=== PATIENT | male | born 1940 | race Caucasian/White ===

== ENCOUNTER 2018-02-25 12:55 | Observation (INO) | payer MEDICARE, OTHER ==
[2018-02-25] MEDS ORDERED: Nitroglycerin 2% Ointment 1 INCH/1 GM Packet ONE (13:22)
[2018-02-25] MEDS ORDERED: ISOVUE-370 76%-LOCM 1 ML ONE (13:35)
[2018-02-25 13:44] LABS: #Eosinphils 0.1 thou/uL (0.0-0.7); #Lymphocytes 1.1 thou/uL (1.20-3.40); #Monocytes 0.5 thou/uL (0.11-0.59); #Neutrophils 2.7 thou/uL (1.40-6.50); %Basophils 0.6 % (0.0-1.0); %Eosinophils 1.2 % (0.0-10.0); %Lymphocytes 24.4 % (21.0-51.0); %Monocytes 11.6 % (0.0-10.0); %Neutrophils 62.1 % (42.0-75.0); Hemoglobin 14.2 g/dL (14.0-18.0); Mean Corpuscular HGB CONC 33.4 g/dL (32.0-36.0); Mean Corpuscular Hemoglobin 29.2 pg (27.0-31.0); Mean Corpuscular Volume 87.6 fL (78.0-98.0); Mean Platelet Volume 6.1 fL (7.4-10.4); Platelet Count 198 thou/uL (130-400); Red Blood Cell (RBC) Count 4.87 mill/uL (4.70-6.10); White Blood Cell (WBC) Count 4.4 thou/uL (4.8-10.8)
[2018-02-25 14:07] LABS: ALT (SGPT) 15 U/L (8-55); AST (SGOT) 14 U/L (5-34); Albumin 4.3 g/dL (3.4-4.8); Alkaline Phosphatase 61 U/L (40-150); Anion Gap 9 mmol/L (10-20); BUN (Urea Nitrogen) 10 mg/dL (8.4-25.7); Bilirubin, Total 0.6 mg/dL (0.2-1.2); CK (CPK) 49 U/L (30-200); Calc. Creatinine Clearance 0 mL/min (70-130); Calcium 9.9 mg/dL (7.8-10.44); Carbon Dioxide 27 mmol/L (23-31); Chloride 104 mmol/L (98-107); Estimated GFR-MDRD 88; Globulin 2.3 g/dL (2.4-3.5); Glucose 100 mg/dL (83-110); Lipase 23 U/L (8-78); Potassium 4.1 mmol/L (3.5-5.1); Protein, Total 6.6 g/dL (5.8-8.1); Sodium 136 mmol/L (136-145)
[2018-02-25 14:11] LABS: CKMB 1.9 ng/mL (0-6.6); Troponin I Less than 0.010 ng/mL (< 0.028)
--- NOTE | 2018-02-25 14:26 | RAD ---
PORTABLE CHEST: Date: 02/25/18 HISTORY: Chest pain. COMPARISON: None. FINDINGS: Lungs show chronic parenchymal change. No focal infiltrate or vascular congestion. Heart size upper n ormal. Aortic calcification. Postop changes are apparent with radiopaque suture in the right perihila r region and right medial apex. Apical pleural thickening. IMPRESSION: There are chronic changes as described with no evidence of acute infiltrate or congestion. POS: [facility]
--- NOTE | 2018-02-25 16:03 | CT ---
CT ANGIO CHEST WITH CONTRAST: Date: 02/25/18 Multiple axial tomograms obtained through chest following pulmonary angio protocol with multiplanar r econstruction and 3D postprocessing. INDICATION: Chest pain. Assess for pulmonary embolus. FINDINGS: The pulmonary arteries show adequate opacification. There is no evidence of pulmonary embolus. Review of the lung deal show no evidence of inflammatory infiltrate or effusion. There are scattere d chronic lung changes. The mediastinum is unremarkable. Upper abdomen unremarkable. IMPRESSION: 1. No evidence of pulmonary embolus. 2. There are chronic lung parenchymal changes. No evidence of acute infiltrate. POS: [facility]
[2018-02-25 17:09] LABS: Cardiac Risk 3.8 (Less than 4.5)
[2018-02-25 17:13] LABS: Troponin I 0.024 ng/mL (< 0.028)
[2018-02-25 17:52] VITALS: BMI 27.8
[2018-02-25] MEDS ORDERED: Acetaminophen 325 MG TAB PO PRN (17:54)
[2018-02-25 19:54] LABS: Troponin I 0.013 ng/mL (< 0.028)
[2018-02-26] MEDS ORDERED: Acetaminophen 325 MG TAB PO PRN (00:58)
[2018-02-26] MEDS ORDERED: HYDROcodone/Acetaminophen 5/325 mg Tablet PO PRN ×2 (00:58)
[2018-02-26] MEDS ORDERED: Nitroglycerin 0.4 MG TAB (25 Tab Bottle) SL SCH (00:58)
[2018-02-26] MEDS ORDERED: Enoxaparin Sodium 30 MG/0.3 ML SYRINGE SC SCH (01:00)
[2018-02-26 01:52] LABS: CKMB 1.3 ng/mL (0-6.6)
[2018-02-26 04:42] LABS: #Eosinphils 0.1 thou/uL (0.0-0.7); #Lymphocytes 1.2 thou/uL (1.20-3.40); #Monocytes 0.6 thou/uL (0.11-0.59); %Basophils 0.2 % (0.0-1.0); %Lymphocytes 25.3 % (21.0-51.0); %Monocytes 11.9 % (0.0-10.0); %Neutrophils 60.5 % (42.0-75.0); Hemoglobin 13.1 g/dL (14.0-18.0); Mean Corpuscular HGB CONC 32.9 g/dL (32.0-36.0); Mean Corpuscular Hemoglobin 29.1 pg (27.0-31.0); Mean Corpuscular Volume 88.6 fL (78.0-98.0); Mean Platelet Volume 6.2 fL (7.4-10.4); Platelet Count 175 thou/uL (130-400); RBC Distribution Width 12.1 % (11.5-14.5); Red Blood Cell (RBC) Count 4.51 mill/uL (4.70-6.10); White Blood Cell (WBC) Count 4.9 thou/uL (4.8-10.8)
[2018-02-26 04:53] LABS: Anion Gap 9 mmol/L (10-20); BUN (Urea Nitrogen) 11 mg/dL (8.4-25.7); Calc. Creatinine Clearance 85 mL/min (70-130); Calcium 9.3 mg/dL (7.8-10.44); Carbon Dioxide 28 mmol/L (23-31); Chloride 105 mmol/L (98-107); Estimated GFR-MDRD 87; Glucose 100 mg/dL (83-110); Magnesium 2.2 mg/dL (1.6-2.6); Potassium 4.6 mmol/L (3.5-5.1); Sodium 137 mmol/L (136-145)
--- NOTE | 2018-02-26 05:52 | HP ---
DATE OF ADMISSION: 02/25/2018 at 2345 PRIMARY CARE PHYSICIAN: . PRIMARY NURSE PLASTICS: Dr. Swain CHIEF COMPLAINT: Chest pressure. HISTORY OF PRESENT ILLNESS: Mr. Albarado is a 77-year-old male with a history of coronary artery di sease, hypertension, and acid reflux who presents to the emergency department with an episode of ches t pressure. Patient developed some chest tightness earlier today. He did have some shortness of hailey ath and generalized weakness worsening over the last few days. He said the pressure was worse with e xertion and relieved by rest. No syncope or presyncope, no fevers or chills, no abdominal pain, naus ea, vomiting, diarrhea, constipation. Last episode of heart problems with some 10 years ago, we unde rwent PTCA x2 as well as Dr. Swain then. He has not had any workup since then. No other current complaints. PAST MEDICAL HISTORY: Coronary artery disease, hypertension, GERD. PAST SURGICAL HISTORY: PTCA x2, ten years ago. HOME MEDICATIONS: 1. Nitroglycerin 0.4 mg sublingual p.r.n. 2. Lisinopril 10 mg p.o. b.i.d. 3. Dexlansoprazole 60 mg p.o. daily. 4. Vitamin B12 of 5000 mcg daily. 5. Vitamin D3 of 5000 units daily. 6. Atorvastatin 40 mg p.o. at bedtime. 7. Aspirin 81 mg daily. ALLERGIES: NKDA. FAMILY HISTORY: Negative for clotting or bleeding disorder. No immune dysfunction. SOCIAL HISTORY: Negative habits x3. REVIEW OF SYSTEMS: All systems reviewed and negative except as stated as per HPI. PHYSICAL EXAMINATION: VITAL SIGNS: Temperature 97.4, pulse 80, blood pressure 141/68, respiratory rate 18, satting 92% on room air. GENERAL: He is awake, he is alert. He is oriented x3. Well-developed, well-nourished, elderly whit e male, appears to be in no acute distress. HEENT: Normocephalic, atraumatic. Pupils equal, round, react to light bilaterally. Mucous membrane s are moist. No visible lesions or thrush. NECK: Supple. There is no lymphadenopathy, JVD, or thyromegaly. Normal carotid upstrokes. I do no t appreciate bruits. LUNGS: Clear to auscultation bilaterally. He has no wheezes, no rales, no rhonchi. Good air moveme nt and excellent chest excursion symmetrically. CARDIOVASCULAR: Normal cardiac and regular. Normal S1, S2. No S3 or S4. No audible murmurs. ABDOMEN: Soft. It is nontender, nondistended. No masses, no organomegaly. No rebound, rigidity, o r guarding. EXTREMITIES: No cyanosis or clubbing. He does have 1+ edema in the right lower extremity below-the- knee and 2+ edema in the left lower extremity [id number]. I cannot palpate dorsalis pedis, poste rior tibial pulses bilaterally. SKIN: Otherwise warm, moist, and well perfused. There is no other rashes or lesions. MUSCULOSKELETAL: Normal to inspection. There is no evidence of inflammation or palpable effusions. NEUROLOGIC: Cranial nerves II-XII were grossly intact without any focal neurologic deficits, 5/5 str ength, and normal speech. LABORATORY DATA: Sodium 136, potassium 4.1, chloride 104, bicarb 27, BUN 10, creatinine 0.84, glucos e of 100, calcium 9.9. Liver function within normal limits. CBC showed white count of 4.4, hemoglob in is 14.2, hematocrit 42.7, platelet count is 198,000. Biomarkers showed CK-MB of 1.9. Initial tro ponin I is less than 0.010, repeat is 0.024 and third of 0.013. Fasting lipid profile was normal and lipase was 23. RADIOGRAPHIC STUDIES: CT angiogram was negative for PE. It did show some chronic interstitial pradhan es. Chest x-ray showed no acute cardiopulmonary disease. ASSESSMENT AND PLAN: 1. Chest pain, acute coronary syndrome. Patient does have a history of coronary artery disease. He did slightly increase his troponins, but did normalize. We will get another set here, we will place him on nitro paste, beta-iliana, and aspirin. We will get a nuclear stress test in the morning and ask Dr. Swain to evaluate. 2. Hypertension: Controlled. Patient will be on nitro-paste, we will continue his home medications , adding metoprolol for rate control. 3. History of coronary artery disease as above. 4. Gastroesophageal reflux disease on dexlansoprazole, which will continue.
[2018-02-26] MEDS ORDERED: Nitroglycerin 2% Ointment 1 INCH/1 GM Packet TOP SCH (06:00)
[2018-02-26] MEDS ORDERED: Lisinopril 10 MG TAB PO SCH (09:00)
[2018-02-26] MEDS ORDERED: Non-Formulary Item 1 EACH (Dexlansoprazole [Dexilant] 60 MG) PO SCH (09:00)
[2018-02-26] MEDS ORDERED: Metoprolol Tartrate 25 MG TAB PO SCH (09:00)
[2018-02-26] MEDS ORDERED: Aspirin 325 MG TAB PO SCH (09:00)
[2018-02-26 11:43] VITALS: TEMP 97.5
--- NOTE | 2018-02-26 12:04 | NM ---
CARDIAC SPECT: HISTORY: A 77-year-old male with chest pain, coronary artery disease, and hypertension. TECHNIQUE: A myocardial perfusion scan was performed using a single-isotope 1-day protocol with Technetium 99m s estamibi. Ten mCi were injected intravenously for the rest exam followed by 28 mCi for the stress st udy. Pharmacologic stress with adenosine was monitored and interpreted by Augustine Johnson Nurse Practition er. FINDINGS: Homogeneous tracer distribution is seen in the myocardial segments on stress and rest images without fixed or reversible defects. GATED SPECT LVEF: 61%. WALL MOTION EXAM: Normal. IMPRESSION: Normal myocardial perfusion scan. POS: [facility]
[2018-02-26 13:02] LABS: CKMB 1.5 ng/mL (0-6.6); Troponin I Less than 0.010 ng/mL (< 0.028)
[2018-02-26 13:05] VITALS: BP 163/61
[2018-02-26] MEDS ORDERED: ADENOSINE 60 MG/20 ML VIAL ONE (13:59)
--- NOTE | 2018-02-26 19:13 | DIS ---
DATE OF ADMISSION: 02/25/2018 DATE OF DISCHARGE: 02/26/2018 DISCHARGE DIAGNOSES: 1. Chest pain, likely musculoskeletal, stable. 2. Hypertension, stable. 3. History of coronary artery disease, chronic and stable. 4. Dyslipidemia. CONSULTATIONS: None. PERTINENT LAB AND X-RAY FINDINGS: Complete metabolic profile within normal limits. Troponin I negat taylor x4. BNP 46. Total cholesterol 172, triglycerides 87, HDL 45, LDL 110. CBC within normal limits . Portable chest x-ray dated 02/25/2018 showed chronic changes without evidence of acute process. C T angiogram of the chest dated 02/25/2018 showed no evidence for pulmonary embolus. Chronic changes bilaterally. Cardiolite stress test dated 02/26/2018 showed no evidence of reversible or fixed ische jayant with calculated ejection fraction of 61%. HOSPITAL COURSE: The patient was observed on the telemetry unit after initially presenting with ches t pain in the context of known coronary artery disease. The patient underwent Cardiolite stress test ing after initial cardiac biomarkers were negative x4. The patient underwent Cardiolite stress testi ng showing no evidence of reversible or fixed ischemia with calculated ejection fraction of 61%. Tel emetry monitoring showed no evidence of acute arrhythmia or dysrhythmia, and patient overall remained clinically stable throughout the hospital course. Screening metabolic survey was unremarkable and p atient's symptoms consistent with musculoskeletal origin chest pain. I have examined the patient at the time of discharge and discussed laboratory findings, stress test results, at which patient verbal izes understanding and agreement. The patient is overall clinically stable and ready for discharge o n 02/26/2018. DISCHARGE MEDICATIONS: 1. Enteric coated aspirin 81 mg 1 tab p.o. daily. 2. Lipitor 40 mg p.o. at bedtime. 3. Vitamin D3 of 5000 units p.o. daily. 4. Vitamin B12 of 5000 mcg p.o. daily. 5. Dexilant 60 mg p.o. daily. 6. Lisinopril 10 mg p.o. b.i.d. 7. Nitroglycerin 0.4 mg sublingually every 5 minutes p.r.n. chest pain. FOLLOWUP: Patient to follow up with his primary care provider, Dr. Adrian Fuentes within 7 days o f discharge. The patient will follow up with Dr. Heavenly Swain with [facility] with regularly scheduled appointment in 03/2018. ACTIVITY: Ad maria eugenia. DIET: Heart healthy. CODE STATUS: FULL. DISPOSITION: Home, 02/26/2018.
[2018-02-26] MEDS ORDERED: Atorvastatin Calcium 40 MG TAB PO SCH (21:00)
--- NOTE | 2018-03-03 11:46 | EKG ---
Test Reason : Blood Pressure : / mmHG Vent. Rate : 086 BPM Atrial Rate : 086 BPM P-R Int : 226 ms QRS Dur : 134 ms QT Int : 398 ms P-R-T Axes : 052 -34 034 degrees QTc Int : 476 ms Sinus rhythm with marked sinus arrhythmia with 1st degree A-V block Left axis deviation Left ventricular hypertrophy with QRS widening Cannot rule out Septal infarct , age undetermined Abnormal ECG Confirmed by FLAVIO SHAFFER, CM ([id number]), senior editor PAN CODY ([id number]) on 03/03/2018 11:46:10 AM Referred By: Confirmed By:CM MUNIZ MD
== END 2018-02-26 13:32 | disposition home or self-care (01) ==
LOC: ERS 12:55 → 2SW 17:27
PROVIDERS: ADMIT Family Medicine; ATTEND Family Medicine
DX: R07.9 Chest pain, unspecified (principal); I10 Essential (primary) hypertension; I25.10 Atherosclerotic heart disease of native coronary artery without angina pectoris; E78.5 Hyperlipidemia, unspecified; K21.9 Gastro-esophageal reflux disease without esophagitis; Z79.52 Long term (current) use of systemic steroids; Z79.899 Other long term (current) drug therapy; Z79.82 Long term (current) use of aspirin
CPT/HCPCS: 71045; 71275; 78452; 80048; 80053; 80061; 82550; 82553 ×3; 83690; 83735; 83880; 84484 ×4; 85025 ×2; 85379; 93005; 93017; 96372; 99285; A9500; G0378; 36415; 96360; J0153; J1650

== ENCOUNTER 2018-08-27 15:45 | Observation (INO) | payer MEDICARE ==
[2018-08-27 16:19] LABS: #Lymphocytes 1.2 thou/uL (1.20-3.40); #Monocytes 0.5 thou/uL (0.11-0.59); #Neutrophils 2.9 thou/uL (1.40-6.50); %Basophils 0.4 % (0.0-1.0); %Eosinophils 0.7 % (0.0-10.0); %Lymphocytes 25.8 % (21.0-51.0); %Monocytes 10.4 % (0.0-10.0); %Neutrophils 62.6 % (42.0-75.0); Mean Corpuscular HGB CONC 33.1 g/dL (32.0-36.0); Mean Corpuscular Hemoglobin 29.3 pg (27.0-31.0); Mean Corpuscular Volume 88.4 fL (78.0-98.0); Mean Platelet Volume 6.5 fL (7.4-10.4); Platelet Count 217 thou/uL (130-400); RBC Distribution Width 11.8 % (11.5-14.5); Red Blood Cell (RBC) Count 4.78 mill/uL (4.70-6.10); White Blood Cell (WBC) Count 4.6 thou/uL (4.8-10.8)
[2018-08-27 16:46] LABS: ALT (SGPT) 18 U/L (8-55); AST (SGOT) 17 U/L (5-34); Albumin 4.2 g/dL (3.4-4.8); Alkaline Phosphatase 59 U/L (40-150); Anion Gap 14 mmol/L (10-20); BUN (Urea Nitrogen) 14 mg/dL (8.4-25.7); Bilirubin, Total 0.4 mg/dL (0.2-1.2); CK (CPK) 64 U/L (30-200); Calc. Creatinine Clearance 0 mL/min (70-130); Carbon Dioxide 26 mmol/L (23-31); Chloride 105 mmol/L (98-107); Estimated GFR-MDRD 79; Globulin 2.7 g/dL (2.4-3.5); Glucose 90 mg/dL (83-110); Potassium 4.5 mmol/L (3.5-5.1); Protein, Total 6.9 g/dL (5.8-8.1); Sodium 140 mmol/L (136-145)
--- NOTE | 2018-08-27 16:55 | RAD ---
CHEST ONE VIEW: HISTORY: Dyspnea. Chest pain. COMPARISON: 02/25/2018 FINDINGS: The cardiac silhouette and pulmonary vasculature are unremarkable. The lungs are hyperinflated. The mediastinum is midline with aortic calcification. No lobar consolidation or evidence of pneumothora x. quality assurance monitor chassis leads overly the chest. IMPRESSION: Chronic type findings are stable. No active cardiopulmonary abnormalities are demonstrated. POS: [facility]
[2018-08-27 17:32] LABS: Troponin I 0.016 ng/mL (< 0.028)
[2018-08-27] MEDS ORDERED: Nitroglycerin 0.4 MG TAB (25 Tab Bottle) SL PRN (20:12)
[2018-08-27] MEDS ORDERED: Nitroglycerin 0.4 MG TAB (25 Tab Bottle) SL SCH (20:45)
[2018-08-27] MEDS ORDERED: Atorvastatin Calcium 40 MG TAB PO SCH (21:00)
[2018-08-27] MEDS ORDERED: Lisinopril 10 MG TAB PO SCH (21:00)
[2018-08-27] MEDS: Atorvastatin Calcium 40 MG TAB PO SCH (21:48)
--- NOTE | 2018-08-28 02:47 | HP ---
CHIEF COMPLAINT: Chest pain. HISTORY OF PRESENT ILLNESS: This patient is an 78-year-old male, who presented via the emergency department with complaint of chest pain. The patient was admitted in February of this year with an episode of chest pain, which he states is somewhat similar to this one. At that time, the patient underwent a nuclear medicine stress test, which was unremarkable and he was discharged to home. He reports he had followup with Dr. Swain, who told him he was doing quite well and did not get a followup with him for a year. The patient reports that he started feeling bad this morning. He had some general discomfort over his chest and abdominal area. He took his blood pressure and that was high in the 170s. He took his usual morning medications and the pain persisted. It radiated into his neck, his left axilla, and his left arm. He reports that he has actually had some intermittent left upper extremity pain for several weeks. He believes this may be related to carrying boxes of avandeo decorations for his . Today, his encouraged him to come to the emergency department because his symptoms were persisting. He had mild shortness of breath previously, but that resolved. He had no nausea, although he reports he had a little bit last evening, but that resolved with some Maalox. Reports that he is feeling somewhat better at the time of my exam. REVIEW OF SYSTEMS: All other systems were reviewed. Pertinent positives and negatives noted in the history of present illness. PAST MEDICAL HISTORY: Notable for coronary artery disease, hypertension, GERD. PAST SURGICAL HISTORY: Prior PTCA x2, 10 years ago, and the above-mentioned. FAMILY HISTORY: Negative for clotting, bleeding, or any dysfunction. No significant cancer history. SOCIAL HISTORY: The patient is a nonsmoker, nondrinker, and nondrug user. He is . He is full code and his would be his surrogate decision maker should that be necessary. ALLERGIES: NONE. MEDICATIONS: 1. Nitroglycerin sublingual p.r.n. 2. Lisinopril 10 mg p.o. b.i.d. 3. Protonix 40 mg daily. 4. Atorvastatin 40 mg daily. 5. Aspirin 81 mg daily. PHYSICAL EXAMINATION: VITAL SIGNS: Temperature 97.8, pulse 97, respirations 20, O2 saturation 100% on room air, BP 163/61. GENERAL APPEARANCE: Age-appropriate male. He is in no distress. He is awake, alert, oriented, pleasant, and cooperative. HEENT: PERRL. No OP lesions. NECK: Supple and symmetric. No lymphadenopathy, JVD, or carotid bruits. HEART: Regular rate and rhythm with no murmurs, gallops, or rubs. LUNGS: Clear to auscultation bilaterally with good chest wall expansion and air exchange. ABDOMEN: Soft, nontender, and nondistended. Positive bowel sounds. No masses. No organomegaly. EXTREMITIES: Warm and dry with no cyanosis, clubbing, or edema. LABORATORY DATA: White count 4.6, hemoglobin 14.0, platelets 217. Sodium 140, potassium 4.5, chloride 105, CO2 is 26, BUN 14, creatinine 0.89, glucose 90, AST 17, ALT 18, troponin 0.016, subsequent 0.024. Chest x-ray is clear. EKG shows some first-degree block. Chest x-ray shows chronic changes with no acute cardiopulmonary abnormalities noted. IMPRESSION AND PLAN: 1. Chest pain. The patient has a history of known coronary artery disease, but had a negative stress test in February. His initial EKG shows no ischemic changes and his troponins are negative. We will continue to monitor the troponins and telemetry and observation status. I do not anticipate another stress test. We will ask Cardiology to see the patient but at this point, I believe he can either be managed medically or will need more aggressive workup. 2. History of reflux. Continue with the Protonix. Certainly, the patient's symptoms may be related to more GI related pain. 3. Hypertension. Continue with the patient's usual home medications for hypertension. Job ID: [id number]
[2018-08-28 05:04] VITALS: BMI 27.4
[2018-08-28] MEDS ORDERED: Aspirin 81 mg Enteric Coated Tablet PO SCH (09:00)
[2018-08-28] MEDS: Lisinopril 10 MG TAB PO SCH (09:14)
[2018-08-28] MEDS ORDERED: Ondansetron PF 4 MG/2 ML Vial IVP PRN (10:20)
[2018-08-28] MEDS ORDERED: Ondansetron ODT 4 MG TAB PO PRN (10:20)
--- NOTE | 2018-08-28 10:24 | PDOC.PN ---
- Subjective Encounter Start Date: 08/28/18 Encounter Start Time: 10:23 Subjective: Patient sat up comfortably. No complaints. Feels well. No CP/SOB. -: No headaches or dizziness. No difficulty mobilizing. Denies any abdo pain. -: No n/v. No complaints or issues overnight. Urinating without difficulty. - Objective Resuscitation Status - Order Detail: 08/27/18 20:06 Resuscitation Status Routine Resuscitation Status: FULL: Full Resuscitation Discussed with: Patient Vital Signs & Weight: Vital Signs (12 hours) Temp Pulse Resp BP BP Pulse Ox 08/28/18 09:14 163/71 H 08/28/18 07:52 97.3 F L 68 16 163/71 H 100 08/28/18 04:21 97.6 F 73 18 166/74 H 100 08/27/18 23:02 63 16 134/63 Weight Weight 186 lb I&O: 08/27/18 08/28/18 08/29/18 06:59 06:59 06:59 Intake Total 360 Output Total 700 Balance -340 Result Diagrams: 08/27/18 16:10 08/27/18 16:10 Phys Exam - Physical Examination Constitutional: NAD HEENT: PERRLA, moist MMs, sclera anicteric, oral pharynx no lesions Neck: no nodes, no JVD, supple, full ROM Respiratory: clear to auscultation bilateral Cardiovascular: RRR, no significant murmur Gastrointestinal: soft, non-tender, positive bowel sounds Musculoskeletal: no edema, pulses present Neurological: normal sensation, moves all 4 limbs Psychiatric: normal affect, A&O x 3 Skin: no rash, normal turgor, cap refill <2 seconds Dx/Plan (1) Chest pain Code(s): R07.9 - CHEST PAIN, UNSPECIFIED Status: Resolved (2) CAD (coronary artery disease) Code(s): I25.10 - ATHSCL HEART DISEASE OF [place] CORONARY ARTERY W/O ANG PCTRS Status: Chronic (3) Hyperlipidemia Code(s): E78.5 - HYPERLIPIDEMIA, UNSPECIFIED Status: Chronic (4) Hypertension Code(s): I10 - ESSENTIAL (PRIMARY) HYPERTENSION Status: Chronic (5) GERD (gastroesophageal reflux disease) Code(s): K21.9 - GASTRO-ESOPHAGEAL REFLUX DISEASE WITHOUT ESOPHAGITIS Status: Chronic - Plan cont current plan of care TNI neg x 3. Awaiting Cardiology review. -: BP raised 163/71 prior to dose of Lisinopril. Repeat BP. -: GI prophylaxis with Pepcid 20 mg IV BID. -: Continue NPO pending cardio review. ADDENDUM: Patient with episode of central chest pain that lasted seconds around 10:30 am. Non-radiating. Repeat BP 174.74. Amlodipine 5 mg PO x 1 requested. Repeat BP after 30 min. Patient asymptomatic at present.
[2018-08-28] MEDS: Sodium Chloride 0.9% 1,000 ML IV SCH (12:12)
[2018-08-28] MEDS ORDERED: Communication Order-Pharmacy FS SCH (13:30)
--- NOTE | 2018-08-28 13:44 | CON ---
DATE OF CONSULTATION: 08/28/2018 REASON FOR CONSULTATION: Chest pain. PRIMARY PROPELLER MECHANIC: Dr. Sahil Swain. HISTORY OF PRESENT ILLNESS: Mr. Albarado is a very pleasant 78-year-old white gentleman, who comes to the hospital for chest pain. He was carrying some heavy boxes about 2 weeks ago and started having left shoulder pain since then, and he has been nursing this left shoulder pain for days. Yesterday, he had an episode where he was walking back from his mailbox and he became very short winded with midsternal chest tightness that only got better after he stopped to rest. This pain was not related to his shoulder pain and he got very concerned this might be his heart, so he decided to come in. He has been ruled out with 3 negative enzymes. He had a similar presentation back in February. He came in and had chest pain. He had a stress test that was unremarkable and he was discharged home. He does have a history of coronary artery disease, however, this is mild. He had a heart catheterization [place] [address] Burnette, which showed normal coronaries and a repeat catheterization in 2010, which showed mild coronary artery disease. He has not had any other evaluation since then except for the stress that he had recently. Currently, he is chest pain free. PAST MEDICAL HISTORY: 1. Mild coronary artery disease as above. 2. Hypertension. 3. GERD. PAST SURGICAL HISTORY: There is a reported history of prior coronary intervention. However, this is not what I see on his records. SOCIAL HISTORY: No alcohol, tobacco, or drugs. OUTPATIENT MEDICATIONS: 1. Sublingual nitroglycerin p.r.n. 2. Lisinopril 10 mg b.i.d. 3. Protonix 40 mg. 4. Atorvastatin 40 mg. 5. Aspirin 81 a day. ALLERGIES: NO KNOWN DRUG ALLERGIES. FAMILY HISTORY: No early coronary artery disease. PHYSICAL EXAMINATION: VITAL SIGNS: Temperature 97.2, pulse 64, respiratory rate 16, saturating 100% on room air, blood pressure 170/79. GENERAL: Awake, alert, and oriented x3. No distress. HEENT: Normocephalic, atraumatic. NECK: Supple. LUNGS: Clear. CARDIOVASCULAR: S1, S2. No S3 or S4. There is a grade 3/6 systolic murmur in the right upper sternal border. ABDOMEN: Soft. EXTREMITIES: No edema. SKIN: Warm and dry. LABORATORY DATA: Laboratory work was reviewed. CBC was unremarkable. Chemistry was normal. Troponin was normal x3. GFR of 79. Chest x-ray was reviewed. ASSESSMENT AND PLAN: 1. Chest pain: Atypical, however, he is having ongoing chest pain. He is very nervous, this may be coronary artery disease. We will get an echocardiogram today and we will plan on doing the heart catheterization tomorrow. We spoke about just conservative therapy and family would prefer to be on the more aggressive side and repeat a heart catheterization to make sure that this is not his heart, if it is not this will make him less likely to come to the hospital if the chest pain were to come back. 2. Continue other medications for now. Thank you for letting me to participate in the care of your patient. Job ID: [id number]
[2018-08-28] MEDS: Atorvastatin Calcium 40 MG TAB PO SCH (19:44)
[2018-08-28] MEDS ORDERED: Famotidine/PF 20 mg/2ml Vial SLOW IVP SCH (21:00)
[2018-08-29] MEDS: Sodium Chloride 0.9% 1,000 ML IV SCH ×2 (00:45→13:10)
[2018-08-29 05:14] LABS: #Eosinphils 0.1 thou/uL (0.0-0.7); #Lymphocytes 1.3 thou/uL (1.20-3.40); #Monocytes 0.6 thou/uL (0.11-0.59); #Neutrophils 2.5 thou/uL (1.40-6.50); %Basophils 0.1 % (0.0-1.0); %Eosinophils 1.5 % (0.0-10.0); %Lymphocytes 29.5 % (21.0-51.0); %Monocytes 13.1 % (0.0-10.0); %Neutrophils 55.8 % (42.0-75.0); Hemoglobin 14.3 g/dL (14.0-18.0); Mean Corpuscular HGB CONC 33.4 g/dL (32.0-36.0); Mean Corpuscular Hemoglobin 29.7 pg (27.0-31.0); Mean Corpuscular Volume 88.8 fL (78.0-98.0); Mean Platelet Volume 6.4 fL (7.4-10.4); Platelet Count 187 thou/uL (130-400); RBC Distribution Width 11.9 % (11.5-14.5); Red Blood Cell (RBC) Count 4.82 mill/uL (4.70-6.10); White Blood Cell (WBC) Count 4.4 thou/uL (4.8-10.8)
[2018-08-29] MEDS: Lisinopril 10 MG TAB PO SCH (05:20)
[2018-08-29 05:32] LABS: ALT (SGPT) 17 U/L (8-55); AST (SGOT) 15 U/L (5-34); Albumin 3.8 g/dL (3.4-4.8); Alkaline Phosphatase 57 U/L (40-150); Anion Gap 11 mmol/L (10-20); BUN (Urea Nitrogen) 11 mg/dL (8.4-25.7); Bilirubin, Total 0.8 mg/dL (0.2-1.2); Calc. Creatinine Clearance 73 mL/min (70-130); Calcium 9.2 mg/dL (7.8-10.44); Carbon Dioxide 27 mmol/L (23-31); Chloride 106 mmol/L (98-107); Estimated GFR-MDRD 81; Globulin 2.4 g/dL (2.4-3.5); Glucose 102 mg/dL (83-110); Potassium 4.5 mmol/L (3.5-5.1); Protein, Total 6.2 g/dL (5.8-8.1); Sodium 139 mmol/L (136-145)
[2018-08-29] MEDS ORDERED: Midazolam HCl 2 mg/2 ml Vial ONE (08:15)
[2018-08-29] MEDS ORDERED: Enoxaparin Sodium 40 MG/0.4 ML SYRINGE SC SCH (09:00)
[2018-08-29] MEDS ORDERED: Famotidine 20 MG TAB PO SCH (09:00)
[2018-08-29] MEDS ORDERED: Sodium Chloride 0.9% 200 ML IV PRN (09:11)
[2018-08-29] MEDS ORDERED: Acetaminophen/Codeine 30-300mg Tablet PO PRN ×2 (09:11)
[2018-08-29] MEDS ORDERED: traMADol HCl 50 MG TAB PO PRN (09:11)
[2018-08-29] MEDS ORDERED: Nitroglycerin 0.4 MG TAB (25 Tab Bottle) SL PRN (09:11)
[2018-08-29] MEDS ORDERED: Iopamidol 370 76% 100 ML VIAL ONE (09:18)
[2018-08-29] MEDS ORDERED: Amlodipine 5 MG TAB PO ONE (11:03)
[2018-08-29 12:11] VITALS: BP 178/78; TEMP 97.5
--- NOTE | 2018-08-30 03:39 | DIS ---
DATE OF ADMISSION: 08/27/2018 DATE OF DISCHARGE: 08/29/2018 PRIMARY CARE PHYSICIAN: Allison Fuentes. CONSULTANTS: 1. Dr. Kwon. 2. Dr. Billingsley. CODE STATUS: Full. PROCEDURES: The patient had a chest x-ray, which showed chronic type findings are stable. No active cardiopulmonary abnormalities. The patient had an echocardiogram that showed an ejection fraction visually estimated at 55% to 60%. Grade 1/3 diastolic dysfunction, septal bounce consistent with BBB morphology. Mitral annular calcification. Mild mitral regurgitation. Aortic valve sclerosis, but opens well. 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 The patient also had a cardiac catheterization which showed good ventricular function. Estimated LV ejection fraction at 60% to 65%, disease of the left circumflex coronary artery, 50% to 70%, small tortuous vessel, mild calcium in the LAD, no stenosis. DISCHARGE DIAGNOSES: 1. Chest pain, atypical. 2. Coronary artery disease. 3. Hypertension. 4. History of reflux. HOSPITAL COURSE: This is a very pleasant 78-year-old male, who presented to the emergency room on August 27, 2018, for evaluation of chest pain. He reports that he woke up with left-sided chest pain, left arm pain, [place] [facility] [place] [facility] where he was admitted for chest pain. The patient had 3 troponins which were undetectable. Dr. Kwon was consulted. He discussed pain with the family and options, and they opted for a cardiac catheterization to make sure that he did not have any serious coronary artery disease causing the pain. The patient underwent cardiac cath the day of discharge, findings as described above. The patient underwent the recovery process after a cardiac cath, he tolerated well. After 4 hours, he was able to sit up. He was able to walk around the unit without any issues. Subsequently, the patient was discharged home. Instructed to follow up with his primary care physician within the next week. Follow up with Dr. Kwon in the next 2 to 3 weeks. REVIEW OF SYSTEMS: The patient was examined prior to discharge. He denied any chest pain, shortness of breath, palpitations, headache, abdominal pain, nausea, vomiting, or diarrhea. All other systems are reviewed and are negative unless mentioned in the hospital course. PHYSICAL EXAMINATION: VITAL SIGNS: Temperature is 98.1, pulse is 67, respirations are 18, blood pressure 143/65, and pulse ox is 96% on room air. CONSTITUTIONAL: The patient appears nontoxic. The patient is alert and oriented to person, place, and time. HEENT: Head is atraumatic and normocephalic. Eyes; eyelids are normal to inspection. Pupils are equally round and reactive to light. ENT: Mucous membranes are moist. Mouth exam is normal. NECK: Normal range of motion. Trachea is midline. RESPIRATORY: Chest, breath sounds are clear. No findings of respiratory distress. CARDIOVASCULAR: Regular heart rate and rhythm. Heart sounds are normal. ABDOMEN: Nontender on palpation. Bowel sounds are heard. BACK: Normal inspection. Normal range of motion. EXTREMITIES: Upper extremities, normal inspection, normal range of motion. Lower extremities, normal inspection, normal range of motion. Pedal pulses are equal bilaterally. NEURO: Speech is normal. The patient is oriented to person, place, and time. SKIN: Warm, dry, and normal in color. PSYCH: The patient has a normal affect. Remote memory is normal. HOME MEDICATIONS: The patient was continued on medications including; 1. Aspirin 81 mg p.o. daily. 2. Lipitor 40 mg p.o. at bedtime. 3. Nitrostat 0.4 mg sublingual q.5 minutes as needed for chest pain. 4. Protonix 40 mg p.o. daily. 5. Zestril 10 mg p.o. daily. ALLERGIES: NO KNOWN DRUG ALLERGIES. CONDITION: Stable. PATIENT CONDUCTION: Discharged to home. REFERRAL: The patient should follow up with primary care physician within one week and follow up with Dr. Kwon in the next 2 to 3 weeks. Job ID: [id number]
--- NOTE | 2018-09-07 15:24 | EKG ---
Test Reason : Blood Pressure : / mmHG Vent. Rate : 082 BPM Atrial Rate : 082 BPM P-R Int : 212 ms QRS Dur : 136 ms QT Int : 398 ms P-R-T Axes : 028 -33 037 degrees QTc Int : 464 ms Sinus rhythm with sinus arrhythmia with 1st degree A-V block Left axis deviation Left ventricular hypertrophy with QRS widening Abnormal ECG Confirmed by TYE VELASQUEZ ([id number]), editor farm journal OLGA LUA ([id number]) on 09/07/2018 3:23:26 PM Referred By: Confirmed By:TYE VELASQUEZ
== END 2018-08-29 13:56 | disposition home or self-care (01) ==
LOC: ERS 15:45 → 2SW 18:00
PROVIDERS: ADMIT Internal Medicine; ATTEND Internal Medicine
PROC: 4A023N7 Measurement of Cardiac Sampling and Pressure, Left Heart, Percutaneous Approach (ICD-10-PCS; principal; 2018-08-29)
PROC: B2101ZZ Fluoroscopy of Single Coronary Artery using Low Osmolar Contrast (ICD-10-PCS; 2018-08-29)
DX: R07.89 Other chest pain (principal); I25.10 Atherosclerotic heart disease of native coronary artery without angina pectoris; I10 Essential (primary) hypertension; I34.0 Nonrheumatic mitral (valve) insufficiency; I35.8 Other nonrheumatic aortic valve disorders; I35.1 Nonrheumatic aortic (valve) insufficiency; I36.1 Nonrheumatic tricuspid (valve) insufficiency; I37.1 Nonrheumatic pulmonary valve insufficiency; E78.5 Hyperlipidemia, unspecified; K21.9 Gastro-esophageal reflux disease without esophagitis; Z95.5 Presence of coronary angioplasty implant and graft; Z79.82 Long term (current) use of aspirin; Z79.899 Other long term (current) drug therapy
CPT/HCPCS: 71045; 80053 ×2; 82550; 84484 ×2; 85025 ×2; 93005; 93306; 93458; 96361 ×2; 96374; 99285; C1769; G0378 ×2; 36415; 99152; J1644; J2250; S0028

== ENCOUNTER 2018-09-12 15:45 | Emergency (ER) | payer MEDICARE ==
[2018-09-12 16:19] LABS: #Lymphocytes 1.9 thou/uL (1.20-3.40); #Monocytes 0.7 thou/uL (0.11-0.59); #Neutrophils 4.7 thou/uL (1.40-6.50); %Basophils 0.4 % (0.0-1.0); %Eosinophils 0.4 % (0.0-10.0); %Lymphocytes 26.2 % (21.0-51.0); %Monocytes 9.9 % (0.0-10.0); %Neutrophils 63.1 % (42.0-75.0); Hemoglobin 14.8 g/dL (14.0-18.0); Mean Corpuscular Hemoglobin 29.7 pg (27.0-31.0); Mean Corpuscular Volume 87.3 fL (78.0-98.0); Mean Platelet Volume 6.8 fL (7.4-10.4); Platelet Count 244 thou/uL (130-400); RBC Distribution Width 11.9 % (11.5-14.5); Red Blood Cell (RBC) Count 4.97 mill/uL (4.70-6.10); White Blood Cell (WBC) Count 7.4 thou/uL (4.8-10.8)
[2018-09-12 16:49] LABS: ALT (SGPT) 17 U/L (8-55); AST (SGOT) 16 U/L (5-34); Albumin 4.3 g/dL (3.4-4.8); Alkaline Phosphatase 71 U/L (40-150); Anion Gap 15 mmol/L (10-20); BUN (Urea Nitrogen) 10 mg/dL (8.4-25.7); Bilirubin, Total 0.7 mg/dL (0.2-1.2); Calc. Creatinine Clearance 0 mL/min (70-130); Calcium 10.2 mg/dL (7.8-10.44); Carbon Dioxide 22 mmol/L (23-31); Chloride 103 mmol/L (98-107); Estimated GFR-MDRD 72; Globulin 2.6 g/dL (2.4-3.5); Glucose 156 mg/dL (83-110); Potassium 4.1 mmol/L (3.5-5.1); Protein, Total 6.9 g/dL (5.8-8.1); Sodium 136 mmol/L (136-145)
[2018-09-12 17:08] LABS: Troponin I 0.036 ng/mL (< 0.028)
[2018-09-12] MEDS ORDERED: Pantoprazole 40 MG VIAL ONE (17:14)
[2018-09-12] MEDS ORDERED: Famotidine/PF 20 mg/2ml Vial ONE (17:16)
--- NOTE | 2018-09-12 19:13 | RAD ---
CHEST ONE VIEW: 09/12/18 HISTORY: Chest pain and dizziness. COMPARISON: 08/27/18. FINDINGS: The cardiac silhouette is magnified by projection. Lungs are hyperinflated. Parenchymal scarring and sutures at the right upper chest. Mediastinum is midline with aortic calcification. No lobar consolid ation or evidence of pneumothorax. The phototypesetting equipment monitor leads overlie the chest. IMPRESSION: Postoperative changes and other chronic type findings appears stable. POS: [facility]
[2018-09-12 19:15] LABS: CKMB 2.3 ng/mL (0-6.6)
[2018-09-12 20:10] LABS: Troponin I 0.022 ng/mL (< 0.028)
--- NOTE | 2018-09-15 10:50 | EKG ---
Test Reason : Blood Pressure : / mmHG Vent. Rate : 106 BPM Atrial Rate : 106 BPM P-R Int : 166 ms QRS Dur : 132 ms QT Int : 358 ms P-R-T Axes : 020 -04 075 degrees QTc Int : 475 ms Sinus tachycardia with Premature atrial complexes with Abberant conduction Non-specific intra-ventricular conduction block Cannot rule out Anteroseptal infarct , age undetermined Abnormal ECG Confirmed by MOI BUSTAMANTE DO ([id number]), slot editor PAN CODY ([id number]) on 09/15/2018 10:50:04 AM Referred By: Confirmed By:MOI BUSTAMANTE DO
== END 2018-09-12 20:24 | disposition home or self-care (01) ==
LOC: ERS 15:45
DX: R07.9 Chest pain, unspecified (principal); K21.9 Gastro-esophageal reflux disease without esophagitis; I10 Essential (primary) hypertension; Z79.899 Other long term (current) drug therapy; Z79.82 Long term (current) use of aspirin
CPT/HCPCS: 36415; 71045; 80053; 82553; 84484; 85025; 93005; 96374; C9113; S0028

== ENCOUNTER 2018-12-03 13:48 | Outpatient (CLI) | payer MEDICARE ==
[2018-12-03 14:34] LABS: #Basophils 0.1 thou/uL (0.0-0.2); #Lymphocytes 1.1 thou/uL (1.20-3.40); #Monocytes 0.5 thou/uL (0.11-0.59); #Neutrophils 3.3 thou/uL (1.40-6.50); %Basophils 1.3 % (0.0-1.0); %Eosinophils 0.8 % (0.0-10.0); %Lymphocytes 22.3 % (21.0-51.0); %Monocytes 10.4 % (0.0-10.0); %Neutrophils 65.2 % (42.0-75.0); Mean Corpuscular HGB CONC 32.2 g/dL (32.0-36.0); Mean Corpuscular Hemoglobin 28.9 pg (27.0-31.0); Mean Corpuscular Volume 89.7 fL (78.0-98.0); Mean Platelet Volume 6.5 fL (7.4-10.4); Platelet Count 196 thou/uL (130-400); RBC Distribution Width 11.9 % (11.5-14.5); Red Blood Cell (RBC) Count 4.49 mill/uL (4.70-6.10); White Blood Cell (WBC) Count 5.1 thou/uL (4.8-10.8)
[2018-12-03 14:50] LABS: Anion Gap 12 mmol/L (10-20); BUN (Urea Nitrogen) 10 mg/dL (8.4-25.7); Calc. Creatinine Clearance 0 mL/min (70-130); Calcium 9.7 mg/dL (7.8-10.44); Carbon Dioxide 27 mmol/L (23-31); Chloride 105 mmol/L (98-107); Estimated GFR-MDRD 75; Glucose 121 mg/dL (83-110); Potassium 4.4 mmol/L (3.5-5.1); Sodium 140 mmol/L (136-145)
== END 2018-12-03 13:49 | disposition home or self-care (01) ==
LOC: LABBT 13:48
PROVIDERS: ATTEND Surgery
DX: Z01.812 Encounter for preprocedural laboratory examination (principal); K40.90 Unilateral inguinal hernia, without obstruction or gangrene, not specified as recurrent
CPT/HCPCS: 80048; 85025

== ENCOUNTER 2018-12-05 09:55 | Day surgery (SDC) | payer MEDICARE ==
[2018-12-03 13:41] VITALS: BMI 26.9
[2018-12-05] MEDS ORDERED: Bupivacaine/Epinephrine 0.25% 30 ML VIAL ONE (11:43)
[2018-12-05] MEDS ORDERED: Bupivacaine PF 0.5% 30 ML VIAL ONE ×2 (11:43→12:29)
[2018-12-05] MEDS ORDERED: Bupivacaine 0.25% HCL 30 ML VIAL ONE (12:09)
[2018-12-05] MEDS ORDERED: Fentanyl 100 MCG/2 ML VIAL ONE ×2 (12:15→13:35)
[2018-12-05] MEDS ORDERED: HYDROcodone/Acetaminophen 5/325 mg Tablet ONE (14:48)
[2018-12-05] MEDS ORDERED: PROPOFOL 200 MG/20 ML VIAL ONE (15:06)
[2018-12-05] MEDS ORDERED: ePHEDrine 50 MG/ML VIAL ONE (15:06)
[2018-12-05] MEDS ORDERED: Lidocaine 1% PF 5 ML VIAL ONE (15:06)
--- NOTE | 2018-12-05 21:39 | OP ---
DATE OF PROCEDURE: 12/05/2018 PREOPERATIVE DIAGNOSIS: Right inguinal hernia. POSTOPERATIVE DIAGNOSIS: Right inguinal hernia. PROCEDURE PERFORMED: Right inguinal hernia repair with mesh, PHS extended. ANESTHESIA: General. COMPLICATIONS: None. SPECIMENS: None. FINDINGS: Right inguinal hernia. DESCRIPTION OF PROCEDURE: The patient was taken to the operating room and laid supine on the operating room table. After general anesthetic was obtained, an oblique incision made above the pubic tubercle in the right lower quadrant. Cautery was used to dissect down through Taty's to expose the external oblique fibers opened along the course of the external ring. The ilioinguinal nerve was found and segmentally high removed to prevent postop pain. Cord structures were mobilized on the pubic tubercle using a Fenwick drain. Dissection superiorly and medially on the cord showed to be an indirect hernia sac. The indirect hernia sac was dissected away from the surrounding structures and a high ligation was performed using silk. The sac was dunked back down into the abdominal cavity. PHS extended mesh brought into the sterile field. The underlay was placed in preperitoneal space through the internal ring. The overlay was laid in the floor of the inguinal canal. The overlay was sewn distally to the pubic tubercle medially to the transverse arch, laterally to the shelving edge of the inguinal ligament using permanent braided suture. Extra mesh was tucked back into the external oblique proximally. The wound was irrigated. Local anesthetic was applied. External oblique was closed using 3-0 Vicryl, Taty was closed using 3-0 Vicryl. Skin closed running 4-0 Monocryl and Dermabond. The patient was sent to recovery in stable condition. All instrument counts, needle counts and lap counts are correct. Job ID: [id number]
== END 2018-12-05 15:20 | disposition home or self-care (01) ==
LOC: SDC 09:55
PROVIDERS: ATTEND Surgery
PROC: 0YU50JZ Supplement Right Inguinal Region with Synthetic Substitute, Open Approach (ICD-10-PCS; principal; 2018-12-05)
DX: K40.90 Unilateral inguinal hernia, without obstruction or gangrene, not specified as recurrent (principal); I10 Essential (primary) hypertension; I25.10 Atherosclerotic heart disease of native coronary artery without angina pectoris; E78.00 Pure hypercholesterolemia, unspecified; K21.9 Gastro-esophageal reflux disease without esophagitis; Z79.82 Long term (current) use of aspirin; Z79.899 Other long term (current) drug therapy
CPT/HCPCS: 49505; A4306; C1781; J2001; J2704; J3010; J3490; S0020

== ENCOUNTER 2019-01-28 04:31 | Observation (INO) | payer MEDICARE ==
[2019-01-28 05:38] LABS: #Eosinphils 0.1 thou/uL (0.0-0.7); #Monocytes 0.5 thou/uL (0.11-0.59); #Neutrophils 2.6 thou/uL (1.40-6.50); %Basophils 0.6 % (0.0-1.0); %Eosinophils 1.9 % (0.0-10.0); %Lymphocytes 22.7 % (21.0-51.0); %Monocytes 12.5 % (0.0-10.0); %Neutrophils 62.4 % (42.0-75.0); ALT (SGPT) 12 U/L (8-55); AST (SGOT) 11 U/L (5-34); Alkaline Phosphatase 67 U/L (40-150); Anion Gap 9 mmol/L (10-20); BUN (Urea Nitrogen) 16 mg/dL (8.4-25.7); Bilirubin, Total 0.6 mg/dL (0.2-1.2); Calc. Creatinine Clearance 0 mL/min (70-130); Calcium 9.7 mg/dL (7.8-10.44); Carbon Dioxide 29 mmol/L (23-31); Chloride 104 mmol/L (98-107); Estimated GFR-MDRD 87; Globulin 1.9 g/dL (2.4-3.5); Glucose 103 mg/dL (83-110); Hemoglobin 12.5 g/dL (14.0-18.0); Mean Corpuscular HGB CONC 32.4 g/dL (32.0-36.0); Mean Corpuscular Hemoglobin 28.7 pg (27.0-31.0); Mean Corpuscular Volume 88.6 fL (78.0-98.0); Mean Platelet Volume 6.4 fL (7.4-10.4); Platelet Count 201 thou/uL (130-400); Potassium 4.5 mmol/L (3.5-5.1); Protein, Total 5.9 g/dL (5.8-8.1); RBC Distribution Width 12.2 % (11.5-14.5); Red Blood Cell (RBC) Count 4.35 mill/uL (4.70-6.10); Sodium 137 mmol/L (136-145); White Blood Cell (WBC) Count 4.2 thou/uL (4.8-10.8)
[2019-01-28 08:25] LABS: Troponin I Less than 0.010 ng/mL (< 0.028)
[2019-01-28 08:26] VITALS: BMI 25.4
[2019-01-28] MEDS ORDERED: Ondansetron PF 4 MG/2 ML Vial IVP PRN (08:58)
[2019-01-28] MEDS ORDERED: Acetaminophen 325 MG TAB PO PRN (08:58)
[2019-01-28] MEDS ORDERED: Ondansetron ODT 4 MG TAB SL PRN (08:58)
--- NOTE | 2019-01-28 08:59 | RAD ---
CHEST 1 VIEW: INDICATION: Chest pain. COMPARISON: Prior exam of 09/12/2018. FINDINGS: Severe COPD change and partial right lung apex pneumonectomy is stable. Heart size is upper limits o f normal. No acute osseous abnormality is evident. IMPRESSION: Stable chronic obstructive pulmonary disease change. No definite acute cardiopulmonary abnormality. POS: BH
[2019-01-28] MEDS ORDERED: cloNIDine 0.1 MG TAB PO PRN (12:04)
[2019-01-28] MEDS ORDERED: Nitroglycerin 0.4 MG TAB (25 Tab Bottle) SL PRN (12:04)
[2019-01-28 12:32] VITALS: BP 135/65; TEMP 98
[2019-01-28] MEDS ORDERED: Clopidogrel Bisulfate 300 MG TAB PO SCH (12:45)
[2019-01-28] MEDS ORDERED: Atorvastatin Calcium 40 MG TAB PO SCH (21:00)
[2019-01-28] MEDS ORDERED: Famotidine 20 MG TAB PO SCH (21:00)
[2019-01-28] MEDS ORDERED: Non-Formulary Item 1 EACH (Ranitidine Hcl [Ranitidine Hcl] 150 MG) PO SCH (21:00)
[2019-01-29] MEDS ORDERED: Aspirin 81 mg Enteric Coated Tablet PO SCH (09:00)
[2019-01-29] MEDS ORDERED: Lisinopril 10 MG TAB PO SCH (09:00)
--- NOTE | 2019-01-29 13:08 | SS ---
DATE OF ADMISSION: 01/28/2019 DATE OF DISCHARGE: 01/28/2019 PRIMARY CARE PHYSICIAN: Cristina Grimm MD PRIMARY FORMS ANALYST: Heavenly Swain MD CHIEF COMPLAINT: Chest and arm pain. HISTORY OF PRESENT ILLNESS: This is an 78-year-old white male with a known history of moderate coronary artery disease with a catheterization by Dr. Billingsley in July and beginning of August of this year, which showed a 50% to 70% stenosis of the small torturous left circumflex coronary artery. The rest of the catheterization was normal except for an also a dilated aortic root of 4.4 cm. The patient reports that over the past few weeks he has been having some on and off pain. Pain is in his left axilla just under his armpit and goes down his left arm, also to his left shoulder blade. Pain is crampy pain in nature, comes and goes. He has been getting it intermittently and will wake him up at night. He will take between 1 to 3 baby aspirins and it will go away. The last night it came back, again early in the morning, so he took some more aspirin and it went away again, so that is why he decided to come to the emergency room. He was having some pain when the EMS got in, so they gave him a spray of nitroglycerin and some aspirin and the pain resolved by the time he got to the emergency room. He did have that intermittently during his hospitalization down in the ER and now up on the floor. He has had it a couple of times. He had some just before I walked in here and it is now resolved and he is asymptomatic. The pain is not associated with any shortness of breath. No association with diaphoresis. No association with nausea or vomiting. No other associated symptoms. The patient reports that he is used to having chest pain if his blood pressure goes up very high, but it has not been specifically high with these chest pain episodes, usually between 140-150 systolic, so he is not taking any of his p.r.n. clonidine. He has not had any of his reflux symptoms recently either. PAST MEDICAL HISTORY: 1. Coronary artery disease. 2. Hypertension. 3. Gastroesophageal reflux disease. 4. Hyperlipidemia. PAST SURGICAL HISTORY: 1. Angioplasty x2 ten years ago. 2. Cardiac catheterization in August 2018 with above-mentioned results. 3. Hernia repair 2 years ago and then a right inguinal hernia repair in the last couple of months. SOCIAL HISTORY: No tobacco or illicit drug use. He does drink socially, but not to excess. He lives with his spouse. ALLERGIES: NO KNOWN DRUG ALLERGIES. CURRENT MEDICATIONS: 1. Lisinopril 10 mg daily. 2. Lipitor 40 mg daily. 3. Aspirin 81 mg daily. 4. Clonidine 0.1 mg as needed. 5. Ranitidine 150 mg daily. 6. Protonix 40 mg daily. REVIEW OF SYSTEMS: CONSTITUTIONAL: No fevers or chills. EYES: No double vision or blurred vision. ENT: He has some runny nose and congestion, but no sore throat. CARDIOVASCULAR: See HPI. PULMONARY: No coughing, wheezing, or shortness of breath. GASTROINTESTINAL: No abdominal pain. No nausea or vomiting. No diarrhea or constipation. GENITOURINARY: No dysuria or hematuria. MUSCULOSKELETAL: No specific muscle aches or joint pains beside above mentioned. SKIN: No rashes or other lesions he has noted. NEUROLOGIC: No numbness, tingling, or focal weakness. PHYSICAL EXAMINATION: VITAL SIGNS: Blood pressure 135/65, pulse 79, respirations 16, O2 saturation 98% on room air, temperature 98.0. GENERAL: This is a well-developed, well-nourished white male, in no acute distress. HEENT: Pupils are equal, round, and reactive to light. Oropharynx is clear without lesions, erythema, or exudate. NECK: Supple. No lymphadenopathy. No thyroid nodules or enlargement. No JVD. HEART: Regular rate and rhythm. No murmurs, rubs, or gallops. LUNGS: Clear to auscultation bilaterally. No wheezes, crackles, or rhonchi. He does have some tenderness to palpation of the ribs on the 5th and 6th rib areas on the left axillary line that reproduces some of the pain. ABDOMEN: Soft, nontender to palpation. Normoactive bowel sounds. No hepatosplenomegaly or other masses. EXTREMITIES: No clubbing, cyanosis, or edema. He has full range of motion of the left shoulder. He has no tenderness to palpation of the muscles of the arm or shoulder and no tenderness to palpation of the muscles of the scapula, though he says it is tender. SKIN: No rashes or other lesions noted. NEUROLOGIC: Intact strength and sensation in all extremities. No facial droop. PSYCHIATRIC: Alert and orient x3. Normal mood and affect. LABORATORY DATA: CBC without significant abnormality and a complete metabolic now without significant abnormality. Troponins negative x3. EKG shows normal sinus rhythm with some PACs, and a nonspecific intraventricular block. No T-wave changes. No ST-segment changes. IMAGING: Chest x-ray, I did review the chest x-ray done in the emergency room along with the radiologist's report. It shows no enlarged cardiac silhouette, no mediastinal enlargement, no infiltrate, no other acute processes. ASSESSMENT: 1. Left arm, chest, and shoulder pain. It is possible that this is related to angina from his coronary artery disease that is not able to be stented. Could also be musculoskeletal given the tenderness to palpation of his chest wall. He has no evidence of acute myocardial infarction. This is more of an intermittent angina; it is currently resolved. The patient has had some elevated blood pressures in the hospital, currently down to a more normal range as well now. I did call Dr. Swain, the patient's editor index on the phone and discussed this case with him. He recommends starting the patient on a small dose of amlodipine due to his recurrent high blood pressure elevation as well as loading him with Plavix and then having him follow up in the clinic. 2. Hypertension. Adding amlodipine to the regimen. 3. Hyperlipidemia. He will continue his statin. 4. Gastroesophageal reflux disease. Continue PPI and H2 iliana. DISCHARGE MANAGEMENT: The patient has no evidence of an acute myocardial infarction at this time. He is either having muscular spasms of the chest and shoulder versus intermittent angina from his coronary artery disease. We will discharge him with medication adjustments as recommended by Dr. Swain and have to follow up in the next 1 [address] Swain's office. Location: Discharged home. Activity: As tolerated. Diet: Healthy heart, low-sodium diet. Followup: Follow up with Dr. Swain in 1 to 2 weeks. MEDICATIONS: 1. Amlodipine 5 mg daily, 30 tablets dispensed. 2. Clopidogrel 75 mg daily, 30 tablets dispensed after a 300-mg dose given in the hospital. 3. Aspirin 81 mg daily. 4. Atorvastatin 40 mg at night. 5. Clonidine 0.1 mg as needed. 6. Lisinopril 10 mg daily. 7. Nitroglycerin 0.4 mg sublingual every 5 minutes as needed for pain. 8. Protonix 40 mg daily. 9. Ranitidine 150 mg at night. 10. [id number] Tylenol as needed for pain. The patient is instructed to return to the emergency room should he have severe or unrelenting pain, or have any other symptoms associated with it. He has expressed understanding of this plan. Job ID: [id number]
--- NOTE | 2019-02-02 11:34 | EKG ---
Test Reason : Blood Pressure : / mmHG Vent. Rate : 074 BPM Atrial Rate : 074 BPM P-R Int : 204 ms QRS Dur : 132 ms QT Int : 406 ms P-R-T Axes : 039 -28 040 degrees QTc Int : 450 ms Sinus rhythm with Premature atrial complexes Non-specific intra-ventricular conduction block Abnormal ECG Confirmed by TYE VELASQUEZ ([id number]), scientific editor PAN CODY ([id number]) on 02/02/2019 11:33:43 AM Referred By: Confirmed By:TYE VELASQUEZ
== END 2019-01-28 14:56 | disposition home or self-care (01) ==
LOC: ERS 04:31 → 2SW 06:00
PROVIDERS: ADMIT Internal Medicine; ATTEND Internal Medicine
DX: R07.89 Other chest pain (principal); I25.119 Atherosclerotic heart disease of native coronary artery with unspecified angina pectoris; M25.519 Pain in unspecified shoulder; M79.622 Pain in left upper arm; I10 Essential (primary) hypertension; E78.5 Hyperlipidemia, unspecified; I45.10 Unspecified right bundle-branch block; E55.9 Vitamin D deficiency, unspecified; K21.9 Gastro-esophageal reflux disease without esophagitis; F41.9 Anxiety disorder, unspecified; F39 Unspecified mood [affective] disorder; J30.1 Allergic rhinitis due to pollen; H91.90 Unspecified hearing loss, unspecified ear; Z79.82 Long term (current) use of aspirin; Z79.899 Other long term (current) drug therapy; Z87.891 Personal history of nicotine dependence; Z95.5 Presence of coronary angioplasty implant and graft
CPT/HCPCS: 71045; 80053; 84484 ×2; 85025; 93005; 99285; G0378 ×2; 36415

== ENCOUNTER 2019-02-11 23:22 | Observation (INO) | payer MEDICARE ==
[2019-02-11 23:50] LABS: #Eosinphils 0.1 thou/uL (0.0-0.7); #Lymphocytes 1.2 thou/uL (1.20-3.40); #Monocytes 0.6 thou/uL (0.11-0.59); #Neutrophils 2.8 thou/uL (1.40-6.50); %Basophils 0.8 % (0.0-1.0); %Eosinophils 1.9 % (0.0-10.0); %Lymphocytes 25.8 % (21.0-51.0); %Monocytes 11.8 % (0.0-10.0); %Neutrophils 59.6 % (42.0-75.0); Hemoglobin 12.8 g/dL (14.0-18.0); Mean Corpuscular HGB CONC 32.4 g/dL (32.0-36.0); Mean Corpuscular Hemoglobin 28.6 pg (27.0-31.0); Mean Corpuscular Volume 88.1 fL (78.0-98.0); Mean Platelet Volume 6.4 fL (7.4-10.4); Platelet Count 206 thou/uL (130-400); RBC Distribution Width 12.2 % (11.5-14.5); Red Blood Cell (RBC) Count 4.48 mill/uL (4.70-6.10); White Blood Cell (WBC) Count 4.8 thou/uL (4.8-10.8)
--- NOTE | 2019-02-11 23:50 | RAD ---
XR Chest 1 View Portable HISTORY: Chest pain and tightness COMPARISON: 01/28/2019 study. FINDINGS: Heart size is within normal limits. There are atherosclerotic changes of the aorta. COPD ch anges are present. Postoperative changes of the right upper lobe are seen. No acute process. IMPRESSION: COPD. Stable chest.
[2019-02-12 00:08] LABS: ALT (SGPT) 13 U/L (8-55); AST (SGOT) 11 U/L (5-34); Albumin 4.2 g/dL (3.4-4.8); Alkaline Phosphatase 68 U/L (40-150); Anion Gap 11 mmol/L (10-20); BUN (Urea Nitrogen) 14 mg/dL (8.4-25.7); Bilirubin, Total 0.6 mg/dL (0.2-1.2); Calc. Creatinine Clearance 0 mL/min (70-130); Calcium 10.1 mg/dL (7.8-10.44); Carbon Dioxide 23 mmol/L (23-31); Chloride 104 mmol/L (98-107); Estimated GFR-MDRD 83; Globulin 2.3 g/dL (2.4-3.5); Glucose 108 mg/dL (83-110); Potassium 4.2 mmol/L (3.5-5.1); Protein, Total 6.5 g/dL (5.8-8.1); Sodium 134 mmol/L (136-145)
[2019-02-12 02:58] VITALS: BMI 25.4
[2019-02-12 03:19] LABS: Troponin I 0.011 ng/mL (< 0.028)
[2019-02-12 06:31] LABS: Troponin I Less than 0.010 ng/mL (< 0.028)
[2019-02-12] MEDS ORDERED: traMADol HCl 50 MG TAB PO PRN (06:31)
[2019-02-12] MEDS ORDERED: ALPRAZolam 0.5 MG TAB PO PRN (06:31)
[2019-02-12] MEDS ORDERED: cloNIDine 0.1 MG TAB PO PRN (09:38)
[2019-02-12] MEDS ORDERED: Nitroglycerin 0.4 MG TAB (25 Tab Bottle) SL PRN (09:38)
--- NOTE | 2019-02-12 11:19 | CON ---
DATE OF CONSULTATION: 02/12/2019 REASON FOR CONSULTATION: Chest pain, but predominantly left arm pain. HISTORY OF PRESENT ILLNESS: Mr. Albarado is a gentleman with a very long history of chest pain. He has undergone cardiac catheterizations on multiple occasions. He underwent cardiac catheterization by Dr. Burnette for chest pain many years ago and then another heart catheterization was done in 2010. He continued to have chest pain in last summer and he underwent stress testing, which was normal. Ultimately, he underwent cardiac catheterization by Dr. Billingsley in August of this year. The catheterization revealed; 1. Left main, normal. 2. LAD, normal. 3. Circumflex, Dr. Billingsley indicated 50% to 70% small tortuous vessel, but reviewing the films, it looks like it is less significant than that, probably to my interpretation 150% small vessel. 4. Right coronary normal. The patient has continued to have pain predominantly left arm pain, it is intense. It comes on, it is sporadic times. When he walks around, he feels fine. He takes nitroglycerin, he says about half an hour later it goes away. Sometimes it last for an hour. The patient presented with again left arm pain and some pain in the left lateral chest, but mostly left arm pain and left posterior neck. MEDICATIONS: At home, he was taking; 1. Aspirin. 2. Atorvastatin 40 mg a day. 3. Lisinopril 10 mg a day. 4. Ranitidine. 5. Clopidogrel. 6. Isosorbide 15 mg a day. 7. Zetia 10 mg at bedtime. REVIEW OF SYSTEMS: CONSTITUTIONAL: No significant weight gain or loss. VISION: No changes. HEARING: No changes. PULMONARY: No cough or wheezing. GASTROINTESTINAL: No nausea, vomiting, or diarrhea. SKIN: No rashes. NEUROLOGIC: No unilateral weakness or numbness. PSYCHIATRIC: No unusual depression or anxiety. PHYSICAL EXAMINATION: GENERAL: This is a pleasant 78-year-old gentleman, in no distress. VITAL SIGNS: Blood pressure 140/65 and pulse 70 and regular. LUNGS: Clear. CARDIAC: Normal S1. Normal S2. ABDOMEN: Soft and nontender. EXTREMITIES: No clubbing or cyanosis. There is no edema. PSYCHIATRIC: Mood and affect normal. NEUROLOGIC: Grossly normal. SKIN: Warm and dry. LABORATORY DATA: Cardiac enzymes were negative. EKG showed right bundle branch block with some premature atrial contractions. Most recent LDL cholesterol despite medication was still elevated, LDL is 107. ASSESSMENT: 1. Recurrent left arm pain. 2. Coronary artery disease, thought to be mild. Catheterization early this year did not show any obstructive stenosis. 3. Hypercholesterolemia. 4. Left arm pain of uncertain etiology ? Other etiologies could include cervical spine disease. PLAN: 1. MRI of the cervical spine. 2. Continue current medical regimen. 3. We will change from atorvastatin to Crestor to try to lower his cholesterol further. 4. Continue Zetia. Job ID: [id number]
[2019-02-12 12:32] VITALS: TEMP 97.6
[2019-02-12 15:50] VITALS: BP 169/75
--- NOTE | 2019-02-12 20:35 | MRI ---
MRI OF CERVICAL SPINE PERFORMED WITHOUT CONTRAST ENHANCEMENT: 02/12/19 HISTORY: Neck pain and left arm pain. The vertebral bodies maintain normal height. Minimal disc narrowing is seen at C3-4. Mild disc narrow ing at C4-5 and moderate disc narrowing at the C5-6 level. No abnormal cord signal change. C2-3: Slightly asymmetric right sided uncovertebral changes without canal or foraminal stenosis. C3-4: There is a posterior osteophytic bar present. There is asymmetric left uncovertebral and facet changes and moderate left sided foraminal narrowing. C4-5: There is mild left sided foraminal narrowing at this level mainly related to facet changes. C5-6: Posterior osteophytic bar is associated with mild stenosis at this level. Asymmetric left uncov ertebral changes are associated with a moderately severe left foraminal stenosis. C6-7: Moderate degree of canal stenosis at this level. Borderline left sided foraminal narrowing. C7-T1: No significant canal or foraminal stenosis. IMPRESSION: Areas of canal and foraminal narrowing as described above. POS: NIDA
[2019-02-12] MEDS ORDERED: Rosuvastatin 20 MG TAB PO SCH (21:00)
[2019-02-12] MEDS ORDERED: Ezetimibe 10 MG TAB PO SCH (21:00)
[2019-02-12] MEDS ORDERED: Atorvastatin Calcium 40 MG TAB PO SCH (21:00)
[2019-02-12] MEDS ORDERED: Famotidine 20 MG TAB PO SCH (21:00)
[2019-02-13] MEDS ORDERED: Aspirin 81 mg Enteric Coated Tablet PO SCH (09:00)
[2019-02-13] MEDS ORDERED: Clopidogrel Bisulfate 75 MG TAB PO SCH (09:00)
[2019-02-13] MEDS ORDERED: Amlodipine 5 MG TAB PO SCH (09:00)
[2019-02-13] MEDS ORDERED: Lisinopril 10 MG TAB PO SCH (09:00)
--- NOTE | 2019-02-16 10:30 | EKG ---
Test Reason : Blood Pressure : / mmHG Vent. Rate : 079 BPM Atrial Rate : 079 BPM P-R Int : 238 ms QRS Dur : 142 ms QT Int : 384 ms P-R-T Axes : 044 -27 039 degrees QTc Int : 440 ms Sinus rhythm with 1st degree A-V block with Premature atrial complexes Left ventricular hypertrophy with QRS widening Cannot rule out Anteroseptal infarct , age undetermined Abnormal ECG Confirmed by NICK WISDOM M.D. ([id number]), editorial clerk PAN CODY ([id number]) on 02/16/2019 10:29:52 AM Referred By: Confirmed By:NICK WISDOM M.D.
== END 2019-02-12 19:43 | disposition home or self-care (01) ==
LOC: ERS 23:22 → 2SW 02-12 01:32
PROVIDERS: ADMIT Internal Medicine; ATTEND Internal Medicine
DX: M79.602 Pain in left arm (principal); I25.10 Atherosclerotic heart disease of native coronary artery without angina pectoris; E78.00 Pure hypercholesterolemia, unspecified; I70.0 Atherosclerosis of aorta; J44.9 Chronic obstructive pulmonary disease, unspecified; M48.02 Spinal stenosis, cervical region; Z79.02 Long term (current) use of antithrombotics/antiplatelets; Z79.82 Long term (current) use of aspirin; Z79.899 Other long term (current) drug therapy; Z98.890 Other specified postprocedural states
CPT/HCPCS: 71045; 72141; 80053; 84484 ×3; 85025; 93005; 99285; G0378 ×2; 36415

== ENCOUNTER 2020-05-07 08:29 | Day surgery (SDC) | payer MEDICARE, OTHER ==
[2020-05-07 09:15] LABS: Reticulocyte Count 2.1 % (0.5-1.5)
[2020-05-07 09:26] LABS: #Lymphocytes 0.7 thou/uL (1.20-3.40); #Monocytes 0.4 thou/uL (0.11-0.59); #Neutrophils 2.6 thou/uL (1.40-6.50); %Basophils 0.3 % (0.0-1.0); %Eosinophils 1.2 % (0.0-10.0); %Lymphocytes 18.8 % (21.0-51.0); %Monocytes 9.3 % (0.0-10.0); %Neutrophils 70.3 % (42.0-75.0); MDiff Complete? YES; Mean Corpuscular HGB CONC 29.1 g/dL (32.0-36.0); Mean Corpuscular Hemoglobin 20.6 pg (27.0-31.0); Mean Corpuscular Volume 70.8 fL (78.0-98.0); Mean Platelet Volume 8.4 fL (7.4-10.4); Platelet Count 293 thou/uL (130-400); RBC Distribution Width 15.3 % (11.5-14.5); Red Blood Cell (RBC) Count 3.87 mill/uL (4.70-6.10); White Blood Cell (WBC) Count 3.8 thou/uL (4.8-10.8)
[2020-05-07] MEDS ORDERED: diphenhydrAMINE 25 MG CAP PO PRN (09:34)
[2020-05-07] MEDS ORDERED: Acetaminophen 500 MG TAB PO PRN (09:34)
[2020-05-07 09:38] LABS: ALT (SGPT) 14 U/L (8-55); AST (SGOT) 15 U/L (5-34); Albumin 4.1 g/dL (3.4-4.8); Alkaline Phosphatase 55 U/L (40-110); Anion Gap 12 mmol/L (10-20); BUN (Urea Nitrogen) 8 mg/dL (8.4-25.7); Bilirubin, Total 0.5 mg/dL (0.2-1.2); Calc. Creatinine Clearance 0 mL/min (70-130); Calcium 9.3 mg/dL (7.8-10.44); Carbon Dioxide 23 mmol/L (23-31); Chloride 108 mmol/L (98-107); Estimated GFR-MDRD 84; Globulin 2.3 g/dL (2.4-3.5); Glucose 99 mg/dL (83-110); Iron 16 ug/dL (65-175); Iron Binding Capacity, Total 443 mcg/dL (261-462); Protein, Total 6.4 g/dL (5.8-8.1); Sodium 139 mmol/L (136-145); Uric Acid 4.7 mg/dL (3.5-7.2)
[2020-05-07 10:03] LABS: Ferritin 12.69 ng/mL (22-322); Thyroid Stimulating Hormone 1.5151 uIU/mL (0.35-4.94)
[2020-05-07 15:23] VITALS: BP 169/77; TEMP 97.6
[2020-05-08 19:09] LABS: A/G Ratio 1.7 (0.7-1.7); Albumin 3.9 g/dL (2.9-4.4); Alpha 1 0.2 g/dL (0.0-0.4); Alpha 2 0.7 g/dL (0.4-1.0); Beta 0.8 g/dL (0.7-1.3); Gamma 0.6 g/dL (0.4-1.8); Globulin, Total 2.3 g/dL (2.2-3.9); M-Spike Not Observed g/dL (Not Observed)
== END 2020-05-07 15:24 | disposition home or self-care (01) ==
LOC: ONC/OP 08:29
PROVIDERS: ATTEND Internal Medicine Hematology & Oncology
PROC: 30233N1 Transfusion of Nonautologous Red Blood Cells into Peripheral Vein, Percutaneous Approach (ICD-10-PCS; principal; 2020-05-07)
DX: D64.9 Anemia, unspecified (principal); D69.6 Thrombocytopenia, unspecified
CPT/HCPCS: 36415; 36430; 80053; 82607; 82728; 82746; 83540; 83550; 83615; 84165; 84443; 84550; 85025; 85046; 86850; 86900; 86901; P9016; Q0163

== ENCOUNTER 2021-01-19 16:30 | Emergency (ER) | payer MEDICARE ==
[~2021-01-19 16:30] MED LIST: Iopamidol-370 76% 500 ML 1 ML ONE
[2021-01-19] MEDS ORDERED: Morphine 2 MG/ML VIAL ONE (20:54)
[2021-01-19 21:53] LABS: #Eosinphils 0.1 thou/uL (0.0-0.7); #Lymphocytes 1.5 thou/uL (1.20-3.40); #Monocytes 0.8 thou/uL (0.11-0.59); #Neutrophils 5.5 thou/uL (1.40-6.50); %Basophils 0.1 % (0.0-1.0); %Eosinophils 0.9 % (0.0-10.0); %Monocytes 9.7 % (0.0-10.0); %Neutrophils 70.3 % (42.0-75.0); Hemoglobin 12.5 g/dL (14.0-18.0); Mean Corpuscular HGB CONC 33.6 g/dL (32.0-36.0); Mean Corpuscular Hemoglobin 30.8 pg (27.0-31.0); Mean Corpuscular Volume 91.6 fL (78.0-98.0); Mean Platelet Volume 6.1 fL (7.4-10.4); Platelet Count 268 thou/uL (130-400); RBC Distribution Width 11.5 % (11.5-14.5); Red Blood Cell (RBC) Count 4.07 mill/uL (4.70-6.10); White Blood Cell (WBC) Count 7.8 thou/uL (4.8-10.8)
[2021-01-19 21:53] LABS: Bacteria/HPF None Seen HPF (None Seen); Bilirubin Negative (Negative); Blood, Urine Negative (Negative); Clarity Clear (Clear); Glucose, Urine (Dipstick) Normal (Negative); Ketone, Urine Negative (Negative); Leukocyte 75 Leu/uL (Negative); Nitrite Negative (Negative); Protein, Urine (Dipstick) Negative (Neg-Trace); RBC/HPF 0-3 HPF (0-3); Specific Gravity, Urine 1.012 (1.002-1.036); Squamous Epithelial 0-3 HPF (0-3); Urobilinogen Normal mg/dL (Less than 2); WBC/HPF 0-3 HPF (0-3)
[2021-01-19 22:15] LABS: ALT (SGPT) 33 U/L (8-55); AST (SGOT) 26 U/L (5-34); Albumin 4.2 g/dL (3.4-4.8); Alkaline Phosphatase 118 U/L (40-110); Bilirubin, Direct 0.3 mg/dL (0.1-0.3); Bilirubin, Total 0.5 mg/dL (0.2-1.2); Protein, Total 6.8 g/dL (5.8-8.1)
[2021-01-19 22:17] LABS: ALT (SGPT) 34 U/L (8-55); AST (SGOT) 26 U/L (5-34); Albumin 4.2 g/dL (3.4-4.8); Alkaline Phosphatase 119 U/L (40-110); Anion Gap 14 mmol/L (10-20); BUN (Urea Nitrogen) 8 mg/dL (8.4-25.7); Bilirubin, Total 0.5 mg/dL (0.2-1.2); Calc. Creatinine Clearance 0 mL/min (70-130); Calcium 11.5 mg/dL (7.8-10.44); Carbon Dioxide 26 mmol/L (23-31); Chloride 100 mmol/L (98-107); Globulin 2.6 g/dL (2.4-3.5); Glucose 99 mg/dL (83-110); Protein, Total 6.8 g/dL (5.8-8.1); Sodium 136 mmol/L (136-145)
== END 2021-01-19 23:12 | disposition home or self-care (01) ==
LOC: ERS 16:30
DX: M48.56XA Collapsed vertebra, not elsewhere classified, lumbar region, initial encounter for fracture (principal); N28.1 Cyst of kidney, acquired; N43.3 Hydrocele, unspecified; I25.10 Atherosclerotic heart disease of native coronary artery without angina pectoris; K21.9 Gastro-esophageal reflux disease without esophagitis; I10 Essential (primary) hypertension; Z87.891 Personal history of nicotine dependence; Z79.82 Long term (current) use of aspirin; Z79.899 Other long term (current) drug therapy
CPT/HCPCS: 74177; 76870; 80053; 80076; 81001; 85025; 87086; 93976; J2270; 81015; 96374; Q9967

== ENCOUNTER 2021-01-21 15:13 | Emergency (ER) | payer MEDICARE ==
[2021-01-21] MEDS ORDERED: HYDROcodone/Acetaminophen 5/325 mg Tablet ONE (15:41)
== END 2021-01-21 16:13 | disposition home or self-care (01) ==
LOC: ERS 15:13
DX: M54.9 Dorsalgia, unspecified (principal); I25.10 Atherosclerotic heart disease of native coronary artery without angina pectoris; K21.9 Gastro-esophageal reflux disease without esophagitis; I10 Essential (primary) hypertension; D64.9 Anemia, unspecified; I45.10 Unspecified right bundle-branch block; E55.9 Vitamin D deficiency, unspecified; J43.9 Emphysema, unspecified; M48.00 Spinal stenosis, site unspecified; N40.0 Benign prostatic hyperplasia without lower urinary tract symptoms; Z87.891 Personal history of nicotine dependence; Z79.899 Other long term (current) drug therapy; Z79.82 Long term (current) use of aspirin; Z87.19 Personal history of other diseases of the digestive system
CPT/HCPCS: 99283